=== PATIENT | male | born 1965 | race Caucasian/White ===

== ENCOUNTER 2018-06-09 09:53 | Emergency (ER) | payer OTHER ==
[~2018-06-09] VITALS: Ht 175.3 cm; Wt 87.9 kg
[2018-06-09 09:54] VITALS: BP 129/87
[2018-06-09] MEDS ORDERED: ASPI81TA85 PO (10:14)
[2018-06-09] MEDS ORDERED: SIMV40TA2 PO (10:14)
[2018-06-09] MEDS ORDERED: NEOSPORIN OINT 0.9 GM PKT (FLOOR STOCK) TOP ONE (10:30)
[2018-06-09] MEDS ORDERED: ADACEL/BOOSTRIX VACCINE (DIPHTH/PERTUSS/ACELL/TETANUS)0.5ML SYR (90715) IM ONE (10:30)
[2018-06-09] MEDS ORDERED: AUGM875T28 PO (10:52)
--- NOTE | 2018-06-09 12:23 | REP ---
Left hand series: Four views. History: Drill bit injury left palm. Rule out foreign body. Findings: Four views of the left hand show tiny slivers of metallic opacity in the soft tissues at the radial aspect of the distal phalanx of the long finger. No other metallic foreign body is seen. Specifically no metallic foreign body is seen in the palmar soft tissues. No fracture is seen. Impression: No fracture noted. Tiny metallic foreign body seen in the soft tissues of the distal phalanx of the long finger. No other foreign body seen. Electronically Signed by Steve Tamayo MD 06/09/2018 03:49 P
--- NOTE | 2018-06-10 13:32 | ED PDOC ---
Post-Departure Follow-Up stef Briones faxed formal report of left hand film for fu Diego Smith MD Jun 10, 2018 13:32
== END 2018-06-09 11:00 | disposition home or self-care (01) ==
LOC: M ED 10:41
DX: S61.432A Puncture wound without foreign body of left hand, initial encounter (principal); W29.8XXA Contact with other powered hand tools and household machinery, initial encounter; Y92.009 Unspecified place in unspecified non-institutional (private) residence as the place of occurrence of the external cause; E78.5 Hyperlipidemia, unspecified; Z79.82 Long term (current) use of aspirin; Z79.899 Other long term (current) drug therapy

== ENCOUNTER 2019-03-04 14:01 | Emergency (ER) | payer OTHER ==
[~2019-03-04] VITALS: Ht 175.3 cm; Wt 80.6 kg
[~2019-03-04 14:01] MED LIST: ASPI81TA85 PO; AUGM875T28 PO; SIMV40TA20 PO
[2019-03-04] MEDS ORDERED: ONDANSETRON 4MG/2ML VIAL (J2405) IV ONE ×2 (15:00→19:00)
[2019-03-04] MEDS ORDERED: MECLIZINE 25 MG TABLET PO ONE (15:00)
--- NOTE | 2019-03-04 15:21 | REP ---
INDICATION: Syncope PROCEDURE: CT head without contrast COMPARISON STUDIES: No prior similar study FINDINGS: No acute bleed or acute large vessel territorial infarct. Ventricles, cisterns and sulci within normal limits. No mass effect or midline shift. No abnormal fluid collections. Paranasal sinuses and mastoid air cells are clear. IMPRESSION: No acute findings. Electronically Signed by Maurice Barrow MD 03/04/2019 03:12 P
[2019-03-04 15:22] LABS: BASO % 0.1 % (0.0-1.0); EOS % 0.6 % (0.0-3.0); HEMATOCRIT 42.1 % (42.0-52.0); HEMOGLOBIN 14.6 g/dl (13.5-17.5); LYMPH # 1.9 10^3/uL (1.5-5.0); LYMPH % 27.4 % (24.0-44.0); MEAN CORPUSCULAR HEMOGLOBIN 31.3 pg (27.0-33.0); MEAN CORPUSCULAR HGB CONC 34.7 g/dl (32.0-36.5); MEAN CORPUSCULAR VOLUME 90.1 fl (80.0-96.0); MONO # 0.5 10^3/uL (0.0-0.8); MONO % 7.8 % (0.0-5.0); NEUTROPHILS # 4.3 10^3/uL (1.5-8.5); NEUTROPHILS % 63.7 % (36.0-66.0); PLATELET COUNT, AUTOMATED 234 10^3/uL (150-450); RED BLOOD COUNT 4.67 10^6/uL (4.30-6.10); WHITE BLOOD COUNT 6.8 10^3/uL (4.0-10.0)
[2019-03-04 15:33] LABS: INR 1.02; PROTHROMBIN TIME 13.1 SECONDS (11.8-14.0)
[2019-03-04] MEDS: NS 1,000 ML IV SCH ×2 (15:36→19:00)
[2019-03-04 15:53] LABS: BLOOD UREA NITROGEN 14 MG/DL (7-18); CALCIUM LEVEL 8.2 MG/DL (8.5-10.1); CARBON DIOXIDE LEVEL 25 MEQ/L (21-32); CHLORIDE LEVEL 107 MEQ/L (98-107); CK-MB VALUE MASS 1.7 NG/ML (<3.6); CPK CREATINE PHOSPHOKINASE 160 U/L (39-308); CREATININE FOR GFR 0.88 MG/DL (0.70-1.30); GLOMERULAR FILTRATION RATE > 60.0 (>56); GLUCOSE, FASTING 138 MG/DL (70-100); MB/CK RELATIVE INDEX 1.06 (< OR =4); POTASSIUM SERUM 3.4 MEQ/L (3.5-5.1); SODIUM LEVEL 139 MEQ/L (136-145); THYROID STIMULATING HORMONE 0.951 uIU/ML (0.358-3.740); TROPONIN I < 0.02 NG/ML (< 0.10)
[2019-03-04] MEDS ORDERED: MECL1TAB31 PO (17:56)
[2019-03-04 20:24] VITALS: BP 161/91
--- NOTE | 2019-03-05 09:57 | ECGEPIP ---
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
== END 2019-03-04 20:26 | disposition home or self-care (01) ==
LOC: M ED 14:01
DX: H83.09 Labyrinthitis, unspecified ear (principal); I51.9 Heart disease, unspecified; E78.5 Hyperlipidemia, unspecified; Z82.49 Family history of ischemic heart disease and other diseases of the circulatory system; Z79.82 Long term (current) use of aspirin; Z79.899 Other long term (current) drug therapy
CPT/HCPCS: 70450; 80048; 82550; 82553; 84443; 84484; 85025; 85610; 93005; 93041; 96374; 96376; 99285; J2405